=== PATIENT | male | born 1950 | race Caucasian/White ===

== ENCOUNTER 2018-12-22 15:33 | Emergency (ER) | payer SELFPAY ==
[~2018-12-22] VITALS: Ht 154.9 cm; Wt 86.5 kg
[2018-12-22 15:46] VITALS: BP 119/79
== END 2018-12-22 16:23 | disposition home or self-care (01) ==
LOC: ED 16:17
DX: L03.116 Cellulitis of left lower limb (principal); B86 Scabies; M25.512 Pain in left shoulder
CPT/HCPCS: 99283

== ENCOUNTER 2019-04-12 09:47 | Emergency (ER) | payer MEDICARE, MEDICAID ==
[~2019-04-12] VITALS: Ht 185.4 cm; Wt 90.0 kg
[2019-04-12 09:58] VITALS: BP 144/86
== END 2019-04-12 10:48 | disposition home or self-care (01) ==
LOC: ED 10:40
DX: L30.9 Dermatitis, unspecified (principal)
CPT/HCPCS: 99283

== ENCOUNTER 2020-09-16 09:10 | Emergency (ER) | payer MEDICARE, OTHER, MEDICAID ==
[~2020-09-16] VITALS: Ht 188 cm; Wt 84.0 kg
[2020-09-16 09:12] VITALS: BP 125/77
--- NOTE | 2020-09-16 09:58 | NUR ---
BREAK RN: CARE FOR DC ONLY PROVIDED. PT SITTING ON A CHAIR, DRESSED, READY TO GO. NO IV TO DC. REVIEWED DC INSTRUCTIONS WITH PT. UNDERSTANDING VERBALIZED. PT LEFT AMB, GAIT STEADY.
== END 2020-09-16 10:00 | disposition home or self-care (01) ==
LOC: ED 09:49
DX: R19.7 Diarrhea, unspecified (principal)
CPT/HCPCS: 99283